=== PATIENT | female | born 1995 | race Caucasian/White ===

== ENCOUNTER 2017-05-15 05:44 | Emergency (ER) | payer SELFPAY ==
[~2017-05-15] VITALS: Ht 170.2 cm; Wt 63.5 kg
--- NOTE | 2017-05-15 06:11 | NUR ---
PT IN WAITING ROOM UNTIL OKAY TO COME INTO ER
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
[2017-05-15] MEDS ORDERED: IBUPROFEN 600 MG TABLET PO ONE ×2 (06:50→07:00)
[2017-05-15 07:10] LABS: BASOPHILS % (AUTO) 0.4 % (0.0-2.0); EOSINOPHILS % (AUTO) 0.5 % (0.0-6.0); HEMATOCRIT 36 % (33-45); HEMOGLOBIN 12.6 g/dL (11.5-14.8); LYMPHOCYTES # (AUTO) 2.3 /CMM (0.8-4.8); LYMPHOCYTES % (AUTO) 27.8 % (20.0-44.0); MEAN CORPUSCULAR HEMOGLOBIN 30 PG (26.0-33.0); MEAN CORPUSCULAR HGB CONC 35 g/dl (31.0-36.0); MEAN CORPUSCULAR VOLUME 87 fL (82-100); MONOCYTES # (AUTO) 0.6 /CMM (0.1-1.30); MONOCYTES % (AUTO) 7.1 % (2.0-12.0); NEUTROPHILS # (AUTO) 5.3 /CMM (1.8-8.9); NEUTROPHILS % (AUTO) 64.2 % (43.0-81.0); PLATELET COUNT (AUTO) 280 /CMM (150-450); RDW COEFFICIENT OF VARIATION 12.8 (11.5-15.0); RED BLOOD CELL COUNT(AUTO) 4.14 MIL/uL (4.0-5.2); WHITE BLOOD COUNT (AUTO) 8.3 K/uL (4.3-11.0)
[2017-05-15 07:20] LABS: CALCIUM, SERUM 9.2 mg/dL (8.5-10.1); CREATININE 0.8 mg/dL (0.6-1.3); POTASSIUM 4.1 mmol/L (3.5-5.1)
[2017-05-15 07:25] LABS: ALBUMIN 3.6 g/dL (3.4-5.0); BILIRUBIN,DIRECT 0.1 mg/dL (0.0-0.2); BILIRUBIN,TOTAL 0.2 mg/dL (0.2-1.0); TOTAL PROTEIN, SERUM 7.9 g/dL (6.4-8.2)
--- NOTE | 2017-05-15 07:34 | NUR ---
RADIOLOGY CALLED FOR XRAY
--- NOTE | 2017-05-15 07:40 | NUR ---
REPORT GIVEN TO HAROLDO STEARNS FOR HECTOR.
--- NOTE | 2017-05-15 08:08 | NUR ---
Patient discharged to home in stable condition. Written and verbal after care instructions given. Patient verbalizes understanding of instruction.
[2017-05-15 08:09] VITALS: BP 125/71
== END 2017-05-15 08:11 | disposition home or self-care (01) ==
LOC: ER 05:48
DX: S39.91XA Unspecified injury of abdomen, initial encounter (principal); X58.XXXA Exposure to other specified factors, initial encounter; Y93.89 Activity, other specified; Y92.89 Other specified places as the place of occurrence of the external cause; Y99.8 Other external cause status
CPT/HCPCS: 36415; 71045-TC; 80048-TC; 80076-TC; 83690-TC; 84703-TC; 85025-TC; A4606; Z7610

== ENCOUNTER 2020-01-27 04:10 | Emergency (ER) | payer OTHER ==
[~2020-01-27] VITALS: Ht 170.2 cm; Wt 65.8 kg
[2020-01-27 04:10] VITALS: BP 107/66
--- NOTE | 2020-01-27 04:15 | NUR ---
PT CAME TO THE ER C/O PALPITATIONS AND L SIDED CHEST BURNING CHEST PAIN. PT STATES "I TOOK AN ANTACID BEFOREHAND." PT ENDORSES HX OF CHRONIC GERD. PT AAOX4, VSS, RESPIRATIONS EVEN AND UNLABORED ON RA W/ NAD NOTED. PT CONNECTED TO THE [employer] AND POX
[2020-01-27] MEDS ORDERED: MAG HYDROX/AL HYDROX/SIMETH 30 ML UDC ONE (04:22)
[2020-01-27] MEDS ORDERED: LIDOCAINE VISCOUS 2% UD 15 ML UDC ONE (04:22)
[2020-01-27] MEDS ORDERED: MAG HYDROX/AL HYDROX/SIMETH 30 ML UDC PO ONE (04:30)
[2020-01-27] MEDS ORDERED: LIDOCAINE VISCOUS 2% UD 15 ML UDC MM ONE (04:30)
--- NOTE | 2020-01-27 04:59 | NUR ---
CALLED RD FOR XRAY
--- NOTE | 2020-01-27 05:14 | NUR ---
RADIOLOGY AT BEDSIDE FOR CXR
--- NOTE | 2020-01-27 05:17 | NUR ---
PT REFUSED CXR, AWARE
--- NOTE | 2020-01-27 05:30 | NUR ---
Patient discharged to home in stable condition. Written and verbal after care instructions given. Patient verbalizes understanding of instruction. Pt ambulatory w/ steady gait
== END 2020-01-27 05:31 | disposition home or self-care (01) ==
LOC: ER 04:13
DX: K21.9 Gastro-esophageal reflux disease without esophagitis (principal)

== ENCOUNTER 2020-02-02 21:52 | Emergency (ER) | payer OTHER ==
[~2020-02-02] VITALS: Ht 170.2 cm; Wt 63.5 kg
--- NOTE | 2020-02-02 22:03 | NUR ---
BIBS AFTER GOING TO URGENT CARE FOR SOB. PT WAS GIVEN A SHOT, BUT DID NOT FEEL RELIEF. PT STATES THAT HER "CHEST FEELS TIGHT WHEN SHE BREATHS". PT AAOX4 PT IS TEARFUL AND EMOTIONAL. PT IS ABLE TO SPEAK IN FULL SENTENCES AND UPON ASSESSMENT BREATHS ARE EVEN AND UNLABORED. PT 100% RA. PT IS CONNECTED TO MONITOR AND POX. CALL LIGHT WITHIN REACH. WILL CONTINUE TO MONITOR.
[2020-02-02] MEDS ORDERED: ALBUTEROL FS 2.5 MG/0.5 ML VIAL.NEB ONE (23:11)
--- NOTE | 2020-02-02 23:11 | NUR ---
COLLECTED COVID SWAB AND SENT TO LAB
--- NOTE | 2020-02-02 23:13 | NUR ---
RT AT BEDSIDE
--- NOTE | 2020-02-02 23:28 | NUR ---
RT called to bedside for neb tx. pt found in semi fowlers position. saturation 100% on RA. no sob, no resp distress. states chest pain when taking a breath. will reassess post tx.
[2020-02-02] MEDS ORDERED: ALBUTEROL FS 2.5 MG/0.5 ML VIAL.NEB NEB ONE (23:30)
--- NOTE | 2020-02-02 23:41 | NUR ---
RT post tx, pt states breathing is much better. anxiety increased during tx, HR went up to 200. pt HR went down after pt took off tx, HR 95-109. pt calm and states no sob or resp distress.
--- NOTE | 2020-02-03 00:27 | NUR ---
at bed side
[2020-02-03] MEDS ORDERED: ALPRAZOLAM 0.5 MG TABLET ONE (00:38)
[2020-02-03 00:48] VITALS: BP 116/78
[2020-02-03] MEDS ORDERED: ALPRAZOLAM 0.5 MG TABLET PO ONE (01:00)
== END 2020-02-03 00:48 | disposition home or self-care (01) ==
LOC: ER 21:52
DX: U07.1 COVID-19 (principal); F41.9 Anxiety disorder, unspecified
CPT/HCPCS: 71045; 87426; 94640; 99285; C9803; U0003

== ENCOUNTER 2020-04-14 03:06 | Emergency (ER) | payer OTHER ==
[~2020-04-14] VITALS: Ht 170.2 cm; Wt 63.5 kg
--- NOTE | 2020-04-14 03:12 | NUR ---
PT BIBRA C/O PAIN IN RIGHT THIGH X1.5HR AGO. PT AAOX 4 BREATHING EVENLY AND UNLABORED. PT STATES THAT THE PAIN WOKE HER FROM HER SLEEP. PT STATES THAT SHE IS CONCERNED THAT SHE "HAS A DVT BECAUSE I HAD COVID 2MONTHS AGO AND IT MAKES ME HAVE A RISK FOR DVT". PT SKIN WARM, DRY, AND INTACT. NO COLOR OR TEMPERATURE DIFFERENCE NOTICED UPON ASSESSMENT. PT ATTACHED TO MONITOR AND POX. PT GIVEN WARM BLANKET AND CALL LIGHT WITHIN REACH.
--- NOTE | 2020-04-14 03:29 | NUR ---
CALLED RADIOLOGY TO [facility] ULTRAS[facility]
[2020-04-14] MEDS ORDERED: IBUPROFEN 400 MG TABLET ONE (03:39)
[2020-04-14] MEDS: IBUPROFEN 400 MG TABLET PO ONE (04:00)
--- NOTE | 2020-04-14 04:11 | NUR ---
US AT BEDSIDE
--- NOTE | 2020-04-14 05:15 | NUR ---
pt resting and playing on cell phone.
--- NOTE | 2020-04-14 05:54 | NUR ---
Patient discharged to home in stable condition. Written and verbal after care instructions given. Patient verbalizes understanding of instruction. Pt ambulatory with a steady gait
[2020-04-14 06:10] VITALS: BP 123/75
== END 2020-04-14 05:54 | disposition home or self-care (01) ==
LOC: ER 03:08
DX: M79.18 Myalgia, other site (principal); M79.651 Pain in right thigh
CPT/HCPCS: 93971-TC